=== PATIENT | female | born 1935 | race Caucasian/White ===

== ENCOUNTER 2017-03-09 23:53 | Inpatient (IN) | payer OTHER ==
[~2017-03-09] VITALS: Ht 154.9 cm; Wt 115.1 kg
[~2017-03-09 23:53] MED LIST: AMLODIPINE BESYL5 MG PO; AMLODIPINE-BEN1 EACH PO; ANTIVERT25 MG PO; BENICAR40 MG PO; CHILDREN'S ASPI81 M1 PO; CIMETIDINE400 MG PO; CIPRO500 MG PO; DOXAZOSIN MESYLA4 MG PO; DYAZIDE, MA1 CAPSULE PO; ECOTRIN325 MG PO; FIBER500 MG PO; GLIPIZIDE10 M1 PO; KEFLEX500 MG PO; LABETALOL HCL100 MG PO; LEVEMIR FL100 UNIT/1 SC; LOTREL 10/41 CAPSULE PO; PERCOCET 7.5-31 EACH PO; PRANDIN0.5 MG PO; PRANDIN2 MG PO; TAGAMET HB200 M2 PO; TAGAMET300 MG PO; ULTRAM50 MG PO; XARTEMIS XR 7.1 EACH PO
[2017-03-10 00:44] LABS: HEMATOCRIT 34.2 % (36.0-46.0); MCH 30.3 PG (29.0-34.0); MCHC 32.7 G/DL (30.0-36.0); MCV 92.4 FL (83-99); MEAN PLAT.VOLUME 9.9 uM^3 (9.5-12.4); PLATELET COUNT 134 K/uL (156-360); RBC DIS.WIDTH-SD 43.8 % (39-53); WHITE BLOOD COUNT 8.8 K/uL (4.1-10.2)
[2017-03-10 00:57] LABS: CHLORIDE 110 mEq/L (99-109); POTASSIUM 3.9 mEq/L (3.7-5.4); SODIUM 141 mEq/L (136-147)
[2017-03-10 00:59] LABS: GLUCOSE 223 mg/dL (70-99)
[2017-03-10 01:01] LABS: ANION GAP 11 MEQ/L (2-14); TOTAL BILIRUBIN 1.7 mg/dL (0.0-1.0)
[2017-03-10 01:03] LABS: ALKALINE PHOSPHATASE 105 IU/L (3-129); GFR ESTIMATE (CALCULATED) 27 mL/min/
[2017-03-10 01:04] LABS: UREA NITROGEN (BUN) 25 mg/dL (9-23)
[2017-03-10 01:06] LABS: LIPASE 34 U/L (1.0-51.0)
[2017-03-10 01:06] LABS: ADD MIUA? YES; BILIRUBIN NEGATIVE; BLOOD SMALL; COLOR YELLOW ((YELLOW)); GLUCOSE (STRIP) NEGATIVE; KETONES NEGATIVE; LEUKOCYTES LARGE; NITRITE NEGATIVE; PROTEIN (STRIP) NEGATIVE; UROBILINOGEN 0.2 MG/DL (0.2-1.0)
[2017-03-10 01:55] LABS: EPITHELIAL CELLS 1+ /HPF; MUCUS NONE SEEN /LPF; RED BLOOD CELLS 0-5 /HPF (0-5); WHITE BLOOD CELLS 40-50 /HPF (0-5)
[2017-03-10 01:56] LABS: BACTERIA 3+ /HPF; CASTS NONE SEEN /LPF; CRYSTALS NONE SEEN; UCUL ADDED? YES
[2017-03-10] MEDS ORDERED: TRAMADOL HCL50 MG PO (09:22)
[2017-03-10] MEDS ORDERED: AZO STANDARD97.5 MG PO (09:22)
[2017-03-10] MEDS ORDERED: FISH OIL 1,0001 EAC7 PO (09:22)
[2017-03-10 13:07] LABS: POINT-OF-CARE METER ID UU14100415
[2017-03-10 14:49] VITALS: BP 144/66
[2017-03-10 16:50] LABS: POINT-OF-CARE METER ID UU14208750
[2017-03-10 20:37] VITALS: BP 127/77
[2017-03-10 21:34] LABS: POINT-OF-CARE METER ID UU14162508
[2017-03-11 00:17] VITALS: BP 127/57
[2017-03-11 06:44] LABS: POINT-OF-CARE METER ID UU14208750
[2017-03-11 06:47] LABS: HEMATOCRIT 30.5 % (36.0-46.0); MCH 31.1 PG (29.0-34.0); MCHC 32.8 G/DL (30.0-36.0); MCV 94.7 FL (83-99); MEAN PLAT.VOLUME 10.4 uM^3 (9.5-12.4); PLATELET COUNT 104 K/uL (156-360); RBC DIS.WIDTH-CV 13.6 % (11.8-14.6); RBC DIS.WIDTH-SD 47.4 % (39-53); RED BLOOD COUNT 3.22 M/uL (3.80-5.20); WHITE BLOOD COUNT 4.3 K/uL (4.1-10.2)
[2017-03-11 07:16] LABS: ALKALINE PHOSPHATASE 97 IU/L (3-129); ANION GAP 6 MEQ/L (2-14); CHLORIDE 116 MEQ/L (99-109); POTASSIUM 3.7 MEQ/L (3.7-5.4); SAMPLE HEMOLYSIS CHECK 0; SAMPLE ICTERIC CHECK 0; SAMPLE LIPEMIA CHECK 0; SODIUM 144 MEQ/L (136-147); UREA NITROGEN (BUN) 19 mg/dL (9-23)
[2017-03-11 07:22] LABS: GFR ESTIMATE (CALCULATED) 38 mL/min/; GLUCOSE 67 mg/dL (70-99)
[2017-03-11 07:23] LABS: POINT-OF-CARE METER ID UU14162508
[2017-03-11 08:29] VITALS: BP 139/65
[2017-03-11 11:22] VITALS: BP 155/66
[2017-03-11 11:45] LABS: POINT-OF-CARE METER ID UU14162508
[2017-03-11 12:53] LABS: HBSG INDEX 0.16
[2017-03-11 12:54] LABS: HPCA INDEX 0.09
[2017-03-11 12:55] LABS: ANTI-HEPATITIS A VIRUS (IGM) Nonreactive; ANTI-HEPATITIS B CORE (IGM) Nonreactive; HAV INDEX 0.16; HBC IgM INDEX 0.07
[2017-03-11 15:05] LABS: POINT-OF-CARE METER ID UU14162508
[2017-03-11 16:05] LABS: POINT-OF-CARE METER ID UU14162508
[2017-03-11 16:11] VITALS: BP 142/67
[2017-03-11 19:21] VITALS: BP 168/72
[2017-03-11 21:40] LABS: POINT-OF-CARE METER ID UU14162508
[2017-03-11 23:25] VITALS: BP 147/71
[2017-03-12 06:49] LABS: EOSINOPHIL (%) 2.5 % (0-5); EOSINOPHIL COUNT 0.1 K/uL (0-0.3); HEMATOCRIT 30.7 % (36.0-46.0); IMMATURE GRANULOCYTE (%) 0.9 % (0.0-0.7); INSTRUMENT ABS NEUTROPHIL CT 2.1 K/uL; LYMPHOCYTE COUNT 0.7 K/uL (1.0-2.8); MCH 30.1 PG (29.0-34.0); MCHC 31.6 G/DL (30.0-36.0); MCV 95.3 FL (83-99); MEAN PLAT.VOLUME 10.2 uM^3 (9.5-12.4); MONOCYTE COUNT 0.4 K/uL (0-0.8); NEUTROPHIL (%) 63.7 % (45-76); NEUTROPHIL COUNT 2.1 K/uL (1.8-6.4); PLATELET COUNT 109 K/uL (156-360); RBC DIS.WIDTH-CV 13.5 % (11.8-14.6); RBC DIS.WIDTH-SD 47.1 % (39-53); RED BLOOD COUNT 3.22 M/uL (3.80-5.20); WHITE BLOOD COUNT 3.3 K/uL (4.1-10.2)
[2017-03-12 07:00] LABS: POINT-OF-CARE METER ID UU14208750
[2017-03-12 07:10] VITALS: BP 187/77
[2017-03-12 07:12] LABS: INTER. NORMALIZED RATIO 1.2; PROTHROMBIN TIME 13.2 SEC (10.2-12.9)
[2017-03-12 07:15] LABS: PTT 31.3 SEC (25-37)
[2017-03-12 07:16] LABS: ALKALINE PHOSPHATASE 88 IU/L (3-129); ANION GAP 9 MEQ/L (2-14); CHLORIDE 116 MEQ/L (99-109); GFR ESTIMATE (CALCULATED) 42 mL/min/; GLUCOSE 77 mg/dL (70-99); SAMPLE HEMOLYSIS CHECK 0; SAMPLE ICTERIC CHECK 0; SAMPLE LIPEMIA CHECK 0; SODIUM 145 MEQ/L (136-147); TOTAL BILIRUBIN 2.8 MG/DL (0.0-1.0); UREA NITROGEN (BUN) 15 mg/dL (9-23)
[2017-03-12 10:29] VITALS: BP 142/82
[2017-03-12 11:52] LABS: POINT-OF-CARE METER ID UU14208750
[2017-03-12 16:07] LABS: POINT-OF-CARE METER ID UU14107333
[2017-03-12 18:32] VITALS: BP 144/86
[2017-03-12 22:27] LABS: POINT-OF-CARE METER ID UU14162508
[2017-03-13 06:32] LABS: POINT-OF-CARE METER ID UU14208750
[2017-03-13 07:05] LABS: EOSINOPHIL (%) 1.6 % (0-5); EOSINOPHIL COUNT 0.1 K/uL (0-0.3); HEMATOCRIT 30.2 % (36.0-46.0); INSTRUMENT ABS NEUTROPHIL CT 2.6 K/uL; LYMPHOCYTE COUNT 0.7 K/uL (1.0-2.8); MCH 30.9 PG (29.0-34.0); MCHC 32.8 G/DL (30.0-36.0); MCV 94.4 FL (83-99); MEAN PLAT.VOLUME 9.6 uM^3 (9.5-12.4); MONOCYTE (%) 10.7 % (3-12); MONOCYTE COUNT 0.4 K/uL (0-0.8); NEUTROPHIL (%) 68.1 % (45-76); NEUTROPHIL COUNT 2.6 K/uL (1.8-6.4); PLATELET COUNT 111 K/uL (156-360); RBC DIS.WIDTH-CV 13.6 % (11.8-14.6); RBC DIS.WIDTH-SD 46.8 % (39-53); WHITE BLOOD COUNT 3.8 K/uL (4.1-10.2)
[2017-03-13 07:35] LABS: ALKALINE PHOSPHATASE 105 IU/L (3-129); ANION GAP 7 MEQ/L (2-14); CHLORIDE 115 MEQ/L (99-109); GFR ESTIMATE (CALCULATED) 46 mL/min/; GLUCOSE 68 mg/dL (70-99); POTASSIUM 3.7 MEQ/L (3.7-5.4); SAMPLE HEMOLYSIS CHECK 0; SAMPLE ICTERIC CHECK 1; SAMPLE LIPEMIA CHECK 0; SODIUM 145 MEQ/L (136-147); UREA NITROGEN (BUN) 14 mg/dL (9-23)
[2017-03-13 07:36] LABS: TOTAL BILIRUBIN 3.5 MG/DL (0.0-1.0)
[2017-03-13 07:47] VITALS: BP 118/62
[2017-03-13 07:56] LABS: POINT-OF-CARE METER ID UU14162508
[2017-03-13 11:46] LABS: POINT-OF-CARE METER ID UU14162508
[2017-03-13 16:32] VITALS: BP 138/59
[2017-03-13 16:47] LABS: POINT-OF-CARE METER ID UU14162508
[2017-03-13 21:15] LABS: POINT-OF-CARE METER ID UU14162508
[2017-03-14 00:10] VITALS: BP 106/51
[2017-03-14 00:12] VITALS: BP 180/76
[2017-03-14 00:51] VITALS: BP 167/79
[2017-03-14 06:13] LABS: POINT-OF-CARE METER ID UU14208750
[2017-03-14 07:40] VITALS: BP 148/58
[2017-03-14 07:45] LABS: HEMATOCRIT 30.4 % (36.0-46.0); MCH 30.4 PG (29.0-34.0); MCHC 32.2 G/DL (30.0-36.0); MCV 94.4 FL (83-99); MEAN PLAT.VOLUME 10.2 uM^3 (9.5-12.4); PLATELET COUNT 127 K/uL (156-360); RBC DIS.WIDTH-CV 14.1 % (11.8-14.6); RBC DIS.WIDTH-SD 48.6 % (39-53); RED BLOOD COUNT 3.22 M/uL (3.80-5.20); WHITE BLOOD COUNT 3.6 K/uL (4.1-10.2)
[2017-03-14 08:13] LABS: ALKALINE PHOSPHATASE 121 IU/L (3-129); ANION GAP 5 MEQ/L (2-14); CHLORIDE 113 MEQ/L (99-109); GFR ESTIMATE (CALCULATED) 42 mL/min/; GLUCOSE 85 mg/dL (70-99); POTASSIUM 3.7 MEQ/L (3.7-5.4); SAMPLE HEMOLYSIS CHECK 0; SAMPLE ICTERIC CHECK 0; SAMPLE LIPEMIA CHECK 0; SODIUM 144 MEQ/L (136-147); TOTAL BILIRUBIN 3.3 MG/DL (0.0-1.0); UREA NITROGEN (BUN) 13 mg/dL (9-23)
[2017-03-14 12:12] LABS: POINT-OF-CARE METER ID UU14162508
== END 2017-03-14 13:41 | disposition home or self-care (01) | DRG 445 ==
LOC: EME 23:53 → 2EAST 03-10 06:08 → EDOF 03-10 06:08 → ENRESERV 03-10 06:10 → 2EAST 03-10 14:20
PROVIDERS: Emergency Medicine; Hospitalist; Internal Medicine; Nurse Practitioner Adult Health; Surgery
PROC: 0FC98ZZ Extirpation of Matter from Common Bile Duct, Via Natural or Artificial Opening Endoscopic (ICD-10-PCS; principal; 2017-03-10)
DX: K80.62 Calculus of gallbladder and bile duct with acute cholecystitis without obstruction (principal); N39.0 Urinary tract infection, site not specified; B96.20 Unspecified Escherichia coli [E. coli] as the cause of diseases classified elsewhere; Z16.12 Extended spectrum beta lactamase (ESBL) resistance; Z16.24 Resistance to multiple antibiotics; N17.9 Acute kidney failure, unspecified; E86.0 Dehydration; E87.2 Acidosis; E87.5 Hyperkalemia; D61.818 Other pancytopenia; E11.22 Type 2 diabetes mellitus with diabetic chronic kidney disease; I12.9 Hypertensive chronic kidney disease with stage 1 through stage 4 chronic kidney disease, or unspecified chronic kidney disease; N18.3 Chronic kidney disease, stage 3 (moderate); E66.01 Morbid (severe) obesity due to excess calories; Z68.42 Body mass index [BMI] 45.0-49.9, adult; R18.8 Other ascites; I25.10 Atherosclerotic heart disease of native coronary artery without angina pectoris; K21.9 Gastro-esophageal reflux disease without esophagitis; K43.9 Ventral hernia without obstruction or gangrene; Z66 Do not resuscitate; R00.0 Tachycardia, unspecified; M19.90 Unspecified osteoarthritis, unspecified site; Z79.4 Long term (current) use of insulin; Z87.891 Personal history of nicotine dependence; Z90.710 Acquired absence of both cervix and uterus
CPT/HCPCS: 74176; 74181; 74328; 76705; 80053; 81003; 82948; 83605; 83690; 85025; 85027; 85610; 85730; 86705; 86709; 86803; 87077; 87081; 87086; 87186; 87340; 93005; 99281; 99284; C1757; C1769; J0330; J0696; J1100; J1335; J1644; J1815; J2270; J2405; J2543; J7030; J7050; S0030

== ENCOUNTER 2017-04-15 07:22 | Day surgery (SDC) | payer OTHER ==
[~2017-04-15] VITALS: Ht 152.4 cm; Wt 124.7 kg
[~2017-04-15 07:22] MED LIST changes: +AZO STANDARD97.5 MG PO; +FISH OIL 1,0001 EAC7 PO; +TRAMADOL HCL50 MG PO
[2017-04-15 08:02] LABS: POINT-OF-CARE METER ID UU14174212
[2017-04-15 08:28] VITALS: BP 147/64
[2017-04-15 11:29] LABS: POINT-OF-CARE METER ID UU13113675
[2017-04-15 16:04] VITALS: BP 140/64
[2017-04-15 16:44] LABS: POINT-OF-CARE METER ID UU14208750
[2017-04-15 19:21] VITALS: BP 132/60
[2017-04-15 21:34] LABS: POINT-OF-CARE METER ID UU14208750
[2017-04-15 23:24] VITALS: BP 129/57
[2017-04-16 03:31] VITALS: BP 115/54
[2017-04-16 06:34] LABS: POINT-OF-CARE METER ID UU14208750
[2017-04-16 06:52] LABS: HEMATOCRIT 29.8 % (36.0-46.0); MCHC 32.9 G/DL (30.0-36.0); MCV 94.3 FL (83-99); MEAN PLAT.VOLUME 9.7 uM^3 (9.5-12.4); PLATELET COUNT 132 K/uL (156-360); RBC DIS.WIDTH-CV 13.2 % (11.8-14.6); RBC DIS.WIDTH-SD 45.5 % (39-53); RED BLOOD COUNT 3.16 M/uL (3.80-5.20); WHITE BLOOD COUNT 10.9 K/uL (4.1-10.2)
[2017-04-16 07:15] LABS: ALKALINE PHOSPHATASE 69 IU/L (3-129); ANION GAP 9 MEQ/L (2-14); CHLORIDE 103 MEQ/L (99-109); GFR ESTIMATE (CALCULATED) 31 mL/min/; GLUCOSE 145 mg/dL (70-99); POTASSIUM 4.1 MEQ/L (3.7-5.4); SAMPLE HEMOLYSIS CHECK 0; SAMPLE ICTERIC CHECK 0; SAMPLE LIPEMIA CHECK 0; SODIUM 137 MEQ/L (136-147); TOTAL BILIRUBIN 0.9 MG/DL (0.0-1.0); UREA NITROGEN (BUN) 23 mg/dL (9-23)
[2017-04-16 07:20] VITALS: BP 126/60
== END 2017-04-16 10:26 | disposition home or self-care (01) ==
LOC: SDC 07:22 → 2EAST 11:22 → 2SOUTH 11:22 → ENRESERV 11:32 → SDC 14:09 → 2EAST 15:49
PROVIDERS: Surgery
DX: K80.64 Calculus of gallbladder and bile duct with chronic cholecystitis without obstruction (principal); K66.0 Peritoneal adhesions (postprocedural) (postinfection); K42.0 Umbilical hernia with obstruction, without gangrene; I12.9 Hypertensive chronic kidney disease with stage 1 through stage 4 chronic kidney disease, or unspecified chronic kidney disease; E11.22 Type 2 diabetes mellitus with diabetic chronic kidney disease; N18.3 Chronic kidney disease, stage 3 (moderate); Z79.4 Long term (current) use of insulin; Z87.891 Personal history of nicotine dependence; L89.313 Pressure ulcer of right buttock, stage 3; I97.89 Other postprocedural complications and disorders of the circulatory system, not elsewhere classified; Z79.82 Long term (current) use of aspirin; I44.0 Atrioventricular block, first degree; E66.01 Morbid (severe) obesity due to excess calories; Z68.43 Body mass index [BMI] 50.0-59.9, adult
CPT/HCPCS: 80053; 82948; 85027; 88304; 93005; G0378; J0330; J0690; J1100; J1170; J1644; J1815; J1885; J2175; J2405; J2710; J3010; J7120

== ENCOUNTER 2017-05-10 20:43 | Inpatient (IN) | payer OTHER ==
[~2017-05-10] VITALS: Ht 154.9 cm; Wt 101.3 kg
[~2017-05-10 20:43] MED LIST changes: +ASPIR 8181 M1 PO; -CHILDREN'S ASPI81 M1 PO
[2017-05-10 21:23] LABS: HEMATOCRIT 33.6 % (36.0-46.0); MCH 29.4 PG (29.0-34.0); MCV 89.1 FL (83-99); MEAN PLAT.VOLUME 9.5 uM^3 (9.5-12.4); PLATELET COUNT 191 K/uL (156-360); RBC DIS.WIDTH-CV 13.2 % (11.8-14.6); RBC DIS.WIDTH-SD 43.2 % (39-53); RED BLOOD COUNT 3.77 M/uL (3.80-5.20); WHITE BLOOD COUNT 5.3 K/uL (4.1-10.2)
[2017-05-10 21:28] LABS: CHLORIDE 106 mEq/L (99-109); POTASSIUM 3.9 mEq/L (3.7-5.4); SODIUM 141 mEq/L (136-147)
[2017-05-10 21:30] LABS: GLUCOSE 215 mg/dL (70-99)
[2017-05-10 21:32] LABS: ANION GAP 18 MEQ/L (2-14); TOTAL BILIRUBIN 0.7 mg/dL (0.0-1.0)
[2017-05-10 21:34] LABS: ALKALINE PHOSPHATASE 89 IU/L (3-129); GFR ESTIMATE (CALCULATED) 36 mL/min/
[2017-05-10 21:35] LABS: UREA NITROGEN (BUN) 23 mg/dL (9-23)
[2017-05-10 21:36] LABS: DIRECT BILIRUBIN 0.3 mg/dL (0.0-0.3)
[2017-05-10 21:37] LABS: LIPASE 18 U/L (1.0-51.0)
[2017-05-10 22:02] LABS: ADD MIUA? YES; BILIRUBIN NEGATIVE; BLOOD NEGATIVE; COLOR YELLOW ((YELLOW)); GLUCOSE (STRIP) NEGATIVE; KETONES 5; LEUKOCYTES SMALL; NITRITE POSITIVE; PROTEIN (STRIP) NEGATIVE; SPECIFIC GRAVITY 1.013 (1.000-1.030); UROBILINOGEN 0.2 MG/DL (0.2-1.0)
[2017-05-10 22:52] LABS: BACTERIA 3+ /HPF; EPITHELIAL CELLS 1+ /HPF; MUCUS 1+ /LPF; RED BLOOD CELLS NONE SEEN /HPF (0-5); UCUL ADDED? YES
[2017-05-10 22:53] LABS: AMORPHOUS PHOSPHATE CRYSTALS 1+; CRYSTALS PRESENT
[2017-05-11 02:31] VITALS: BP 130/70
[2017-05-11 06:13] LABS: CARBON DIOXIDE (BICARBONATE) 29.2 MEQ/L (20-31)
[2017-05-11 07:01] LABS: Estimated Average Glucose 148 mg/dL (70-123); HEMOGLOBIN A1c (GLYCOHEMOGLOB) 6.8 % HGB (Below 5.7)
[2017-05-11 07:05] LABS: ALKALINE PHOSPHATASE 77 IU/L (3-129); ANION GAP 9 MEQ/L (2-14); CHLORIDE 108 MEQ/L (99-109); GFR ESTIMATE (CALCULATED) 38 mL/min/; GLUCOSE 186 mg/dL (70-99); HDL CHOLESTEROL 28 MG/DL (Desirable>=50); LDL CHOLESTEROL 85 mg/dL (Desirable<100); NON-HDL CHOLESTEROL 100 mg/dL (Desirable<160); POTASSIUM 3.8 MEQ/L (3.7-5.4); SAMPLE HEMOLYSIS CHECK 0; SAMPLE ICTERIC CHECK 0; SAMPLE LIPEMIA CHECK 0; SODIUM 144 MEQ/L (136-147); TOTAL BILIRUBIN 0.6 MG/DL (0.0-1.0); TOTAL CHOLESTEROL 128 mg/dL (Desirable<200); TRIGLYCERIDES 74 MG/DL (Normal: <150); UREA NITROGEN (BUN) 22 mg/dL (9-23)
[2017-05-11 08:08] VITALS: BP 125/74
[2017-05-11 11:33] VITALS: BP 134/78
[2017-05-11 15:24] VITALS: BP 128/72
[2017-05-11 19:19] VITALS: BP 146/67
[2017-05-11 23:40] VITALS: BP 162/75
[2017-05-12 04:08] VITALS: BP 152/67
[2017-05-12 07:10] LABS: POINT-OF-CARE METER ID UU13113717
[2017-05-12 07:16] VITALS: BP 138/62
[2017-05-12 09:26] LABS: HEMATOCRIT 33.4 % (36.0-46.0); MCH 30.4 PG (29.0-34.0); MEAN PLAT.VOLUME 9.6 uM^3 (9.5-12.4); PLATELET COUNT 163 K/uL (156-360); RBC DIS.WIDTH-CV 13.7 % (11.8-14.6); RBC DIS.WIDTH-SD 47.7 % (39-53); RED BLOOD COUNT 3.52 M/uL (3.80-5.20); WHITE BLOOD COUNT 6.6 K/uL (4.1-10.2)
[2017-05-12 09:29] LABS: MCV 94.9 FL (83-99)
[2017-05-12 09:39] LABS: ANION GAP 9 MEQ/L (2-14); CHLORIDE 107 MEQ/L (99-109); GFR ESTIMATE (CALCULATED) 38 mL/min/; GLUCOSE 153 mg/dL (70-99); POTASSIUM 3.9 MEQ/L (3.7-5.4); SAMPLE HEMOLYSIS CHECK 0; SAMPLE ICTERIC CHECK 0; SAMPLE LIPEMIA CHECK 0; SODIUM 143 MEQ/L (136-147); UREA NITROGEN (BUN) 22 mg/dL (9-23)
[2017-05-12 11:21] VITALS: BP 160/68
[2017-05-12 11:21] LABS: POINT-OF-CARE METER ID UU14188625
[2017-05-12 15:16] VITALS: BP 158/64
[2017-05-12 16:33] LABS: POINT-OF-CARE METER ID UU14188625
[2017-05-12 19:25] VITALS: BP 139/61
[2017-05-12 22:06] LABS: POINT-OF-CARE METER ID UU13113717
[2017-05-12 23:33] VITALS: BP 130/62
[2017-05-13 04:27] VITALS: BP 138/63
[2017-05-13 07:07] LABS: POINT-OF-CARE METER ID UU13113717
[2017-05-13 07:10] VITALS: BP 154/78
[2017-05-13 11:13] LABS: POINT-OF-CARE METER ID UU13113717
[2017-05-13 11:19] VITALS: BP 150/68
[2017-05-13 15:09] VITALS: BP 144/65
[2017-05-13 16:33] LABS: POINT-OF-CARE METER ID UU14174225
[2017-05-13 19:42] VITALS: BP 142/62
[2017-05-13 21:37] LABS: POINT-OF-CARE METER ID UU14174225
[2017-05-13 23:56] VITALS: BP 140/63
[2017-05-14 03:56] VITALS: BP 144/66
[2017-05-14 07:39] VITALS: BP 133/60
[2017-05-14 09:18] LABS: POINT-OF-CARE METER ID UU13113717
[2017-05-14 11:43] VITALS: BP 160/64
[2017-05-14 12:09] LABS: POINT-OF-CARE METER ID UU13113717
[2017-05-14] MEDS ORDERED: ATORVASTATIN CA40 MG PO (13:29)
[2017-05-14] MEDS ORDERED: ANTIVERT25 MG PO (13:30)
[2017-05-14] MEDS ORDERED: TYLENOL REGULA325 MG PO (13:32)
[2017-05-14 15:24] VITALS: BP 140/78
== END 2017-05-14 16:19 | DRG 690 ==
LOC: EME 20:43 → EDOF 05-11 00:06 → ENRESERV 05-11 00:32 → 2EAST 05-11 02:03 → ENRESERV 05-11 02:48 → 5SOUTH 05-11 02:52
PROVIDERS: Emergency Medicine; Hospitalist; Nurse Practitioner Adult Health; Physician Assistant Medical
DX: N39.0 Urinary tract infection, site not specified (principal); E86.0 Dehydration; I12.9 Hypertensive chronic kidney disease with stage 1 through stage 4 chronic kidney disease, or unspecified chronic kidney disease; Z68.41 Body mass index [BMI] 40.0-44.9, adult; E87.2 Acidosis; I25.10 Atherosclerotic heart disease of native coronary artery without angina pectoris; I44.1 Atrioventricular block, second degree; E78.5 Hyperlipidemia, unspecified; E11.22 Type 2 diabetes mellitus with diabetic chronic kidney disease; H81.10 Benign paroxysmal vertigo, unspecified ear; N18.9 Chronic kidney disease, unspecified; K83.0 Cholangitis; E66.01 Morbid (severe) obesity due to excess calories; K21.9 Gastro-esophageal reflux disease without esophagitis; Z79.4 Long term (current) use of insulin; Z87.891 Personal history of nicotine dependence; Z87.440 Personal history of urinary (tract) infections; Z90.710 Acquired absence of both cervix and uterus; Z90.49 Acquired absence of other specified parts of digestive tract; Z85.118 Personal history of other malignant neoplasm of bronchus and lung
CPT/HCPCS: 70450; 70551; 74176; 80048; 80053; 80061; 80076; 81003; 82803; 82948; 83036; 83605; 83690; 85027; 87040; 87086; 93005; 93306; 93880; 93970; 94799; 97530 GP; 99281; 99285; J1335; J1650; J1815; J2060; J2405; J2543; J7030; J7050; J7120